=== PATIENT | male | born 1955 | race Caucasian/White ===

== ENCOUNTER 2023-11-19 09:03 | Outpatient (CLI) | payer MEDICARE, OTHER | END 2023-11-19 09:04 | disposition home or self-care (01) | LOC: CSHWCC 09:03 | PROVIDERS: ATTEND Nurse Practitioner Family | DX: T81.31XD Disruption of external operation (surgical) wound, not elsewhere classified, subsequent encounter (principal); E11.622 Type 2 diabetes mellitus with other skin ulcer; L98.499 Non-pressure chronic ulcer of skin of other sites with unspecified severity | CPT/HCPCS: 11042; 97607; G0463; 99213 ==

== ENCOUNTER 2023-11-26 09:54 | Outpatient (CLI) | payer MEDICARE, OTHER | END 2023-11-26 09:55 | disposition home or self-care (01) | LOC: CSHWCC 09:54 | PROVIDERS: ATTEND Nurse Practitioner Family | DX: T81.31XD Disruption of external operation (surgical) wound, not elsewhere classified, subsequent encounter (principal); E11.622 Type 2 diabetes mellitus with other skin ulcer; L98.499 Non-pressure chronic ulcer of skin of other sites with unspecified severity | CPT/HCPCS: 11042 ==

== ENCOUNTER 2023-12-14 13:26 | Outpatient (CLI) | payer MEDICARE, OTHER | END 2023-12-14 13:27 | disposition home or self-care (01) | LOC: CSHWCC 13:26 | PROVIDERS: ATTEND Nurse Practitioner Family | DX: E11.622 Type 2 diabetes mellitus with other skin ulcer (principal); T81.31XD Disruption of external operation (surgical) wound, not elsewhere classified, subsequent encounter; L98.499 Non-pressure chronic ulcer of skin of other sites with unspecified severity | CPT/HCPCS: 11042 ==

== ENCOUNTER 2024-01-25 09:15 | Outpatient (CLI) | payer MEDICARE, OTHER | END 2024-01-25 09:16 | disposition home or self-care (01) | LOC: CSHWCC 09:15 | PROVIDERS: ATTEND Family Medicine | DX: T81.31XD Disruption of external operation (surgical) wound, not elsewhere classified, subsequent encounter (principal); E11.622 Type 2 diabetes mellitus with other skin ulcer; L98.499 Non-pressure chronic ulcer of skin of other sites with unspecified severity | CPT/HCPCS: 99213; G0463 ==

== ENCOUNTER 2024-01-29 07:49 | Outpatient (CLI) | payer MEDICARE, OTHER ==
[2024-01-29 09:05] LABS: Anion Gap 17 mmol/L (10-20); BUN (Urea Nitrogen) 25 mg/dL (8.4-25.7); Calc. Creatinine Clearance 0 mL/min (70-130); Calcium 9.1 mg/dL (7.8-10.44); Carbon Dioxide 22 mmol/L (23-31); Chloride 107 mmol/L (98-107); Estimated GFR 46; Glucose 102 mg/dL (80-115); Potassium 4.7 mmol/L (3.5-5.1); Sodium 141 mmol/L (136-145)
== END 2024-01-29 07:50 | disposition home or self-care (01) ==
LOC: CSHLAB 07:49
PROVIDERS: ATTEND Surgery
DX: Z01.818 Encounter for other preprocedural examination (principal); S31.109A Unspecified open wound of abdominal wall, unspecified quadrant without penetration into peritoneal cavity, initial encounter
CPT/HCPCS: 80048; 93005; 93010

== ENCOUNTER → 2024-02-29 | Outpatient (CLI) | payer MEDICARE, OTHER | LOC: CSHWCC 13:00 | PROVIDERS: ATTEND Nurse Practitioner Family | DX: T81.31XD Disruption of external operation (surgical) wound, not elsewhere classified, subsequent encounter (principal); E11.622 Type 2 diabetes mellitus with other skin ulcer | CPT/HCPCS: 11042; 97605 ==

== ENCOUNTER 2024-03-07 09:53 | Outpatient (CLI) | payer MEDICARE, OTHER | END 2024-03-07 09:54 | disposition home or self-care (01) | LOC: CSHWCC 09:53 | PROVIDERS: ATTEND Nurse Practitioner Family | DX: T81.31XD Disruption of external operation (surgical) wound, not elsewhere classified, subsequent encounter (principal); E11.622 Type 2 diabetes mellitus with other skin ulcer; L98.499 Non-pressure chronic ulcer of skin of other sites with unspecified severity | CPT/HCPCS: 11042; 87070; 87077; 87186; 87205 ==

== ENCOUNTER 2024-03-14 09:12 | Outpatient (CLI) | payer MEDICARE, OTHER | END 2024-03-14 09:13 | disposition home or self-care (01) | LOC: CSHWCC 09:12 | PROVIDERS: ATTEND Preventive Medicine Undersea and Hyperbaric Medicine | DX: T81.31XD Disruption of external operation (surgical) wound, not elsewhere classified, subsequent encounter (principal); E11.622 Type 2 diabetes mellitus with other skin ulcer; L98.499 Non-pressure chronic ulcer of skin of other sites with unspecified severity | CPT/HCPCS: 97605 ==

== ENCOUNTER 2024-03-21 10:45 | Outpatient (CLI) | payer MEDICARE, OTHER | END 2024-03-21 10:46 | disposition home or self-care (01) | LOC: CSHWCC 10:45 | PROVIDERS: ATTEND Nurse Practitioner Family | DX: E11.622 Type 2 diabetes mellitus with other skin ulcer (principal); T81.31XD Disruption of external operation (surgical) wound, not elsewhere classified, subsequent encounter | CPT/HCPCS: 87070; 87077; 87186; 87205 ==

== ENCOUNTER 2024-03-28 09:45 | Outpatient (CLI) | payer MEDICARE, OTHER | END 2024-03-28 09:46 | disposition home or self-care (01) | LOC: CSHWCC 09:45 | PROVIDERS: ATTEND Nurse Practitioner Family | DX: T81.31XD Disruption of external operation (surgical) wound, not elsewhere classified, subsequent encounter (principal); E11.622 Type 2 diabetes mellitus with other skin ulcer; L98.499 Non-pressure chronic ulcer of skin of other sites with unspecified severity ==

== ENCOUNTER 2024-04-04 08:50 | Outpatient (CLI) | payer MEDICARE, OTHER | END 2024-04-04 08:51 | disposition home or self-care (01) | LOC: CSHWCC 08:50 | PROVIDERS: ATTEND Nurse Practitioner Family | DX: T81.31XD Disruption of external operation (surgical) wound, not elsewhere classified, subsequent encounter (principal); E11.622 Type 2 diabetes mellitus with other skin ulcer; L98.499 Non-pressure chronic ulcer of skin of other sites with unspecified severity | CPT/HCPCS: 11042 ==

== ENCOUNTER 2024-04-11 10:59 | Outpatient (CLI) | payer MEDICARE, OTHER | END 2024-04-11 11:00 | disposition home or self-care (01) | LOC: CSHWCC 10:59 | PROVIDERS: ATTEND Nurse Practitioner Family | DX: E11.622 Type 2 diabetes mellitus with other skin ulcer (principal); T81.31XD Disruption of external operation (surgical) wound, not elsewhere classified, subsequent encounter | CPT/HCPCS: 97597 ==

== ENCOUNTER 2024-04-18 08:51 | Outpatient (CLI) | payer MEDICARE, OTHER | END 2024-04-18 08:52 | disposition home or self-care (01) | LOC: CSHWCC 08:51 | PROVIDERS: ATTEND Nurse Practitioner Family | DX: T81.31XD Disruption of external operation (surgical) wound, not elsewhere classified, subsequent encounter (principal); E11.622 Type 2 diabetes mellitus with other skin ulcer; L98.499 Non-pressure chronic ulcer of skin of other sites with unspecified severity | CPT/HCPCS: 11042 ==

== ENCOUNTER 2024-06-13 08:33 | Outpatient (CLI) | payer MEDICARE, OTHER | END 2024-06-13 08:34 | disposition home or self-care (01) | LOC: CSHWCC 08:33 | PROVIDERS: ATTEND Nurse Practitioner Family | DX: T81.31XD Disruption of external operation (surgical) wound, not elsewhere classified, subsequent encounter (principal); E11.622 Type 2 diabetes mellitus with other skin ulcer; L98.499 Non-pressure chronic ulcer of skin of other sites with unspecified severity | CPT/HCPCS: 11042; 87070; 87205 ==

== ENCOUNTER 2024-06-20 08:40 | Outpatient (CLI) | payer MEDICARE, OTHER | END 2024-06-20 08:41 | disposition home or self-care (01) | LOC: CSHWCC 08:40 | PROVIDERS: ATTEND Nurse Practitioner Family | DX: T81.31XD Disruption of external operation (surgical) wound, not elsewhere classified, subsequent encounter (principal); E11.622 Type 2 diabetes mellitus with other skin ulcer; L98.499 Non-pressure chronic ulcer of skin of other sites with unspecified severity | CPT/HCPCS: 11042 ==

== ENCOUNTER 2024-06-27 10:55 | Outpatient (CLI) | payer MEDICARE, OTHER | END 2024-06-27 10:56 | disposition home or self-care (01) | LOC: CSHWCC 10:55 | PROVIDERS: ATTEND Nurse Practitioner Family | DX: T81.31XD Disruption of external operation (surgical) wound, not elsewhere classified, subsequent encounter (principal); E11.622 Type 2 diabetes mellitus with other skin ulcer; L98.499 Non-pressure chronic ulcer of skin of other sites with unspecified severity | CPT/HCPCS: 15271; Q4133 ==

== ENCOUNTER 2024-07-04 10:23 | Outpatient (CLI) | payer MEDICARE, OTHER | END 2024-07-04 10:24 | disposition home or self-care (01) | LOC: CSHWCC 10:23 | PROVIDERS: ATTEND Nurse Practitioner Family | DX: T81.31XD Disruption of external operation (surgical) wound, not elsewhere classified, subsequent encounter (principal); E11.622 Type 2 diabetes mellitus with other skin ulcer; L98.499 Non-pressure chronic ulcer of skin of other sites with unspecified severity | CPT/HCPCS: 15271; Q4133 ==

== ENCOUNTER 2024-07-18 10:21 | Outpatient (CLI) | payer MEDICARE, OTHER | END 2024-07-18 10:22 | disposition home or self-care (01) | LOC: CSHWCC 10:21 | PROVIDERS: ATTEND Nurse Practitioner Family | DX: T81.31XD Disruption of external operation (surgical) wound, not elsewhere classified, subsequent encounter (principal); E11.622 Type 2 diabetes mellitus with other skin ulcer; L98.499 Non-pressure chronic ulcer of skin of other sites with unspecified severity | CPT/HCPCS: 11042 ==

== ENCOUNTER 2024-07-25 09:46 | Outpatient (CLI) | payer MEDICARE, OTHER | END 2024-07-25 09:47 | disposition home or self-care (01) | LOC: CSHWCC 09:46 | PROVIDERS: ATTEND Nurse Practitioner Family | DX: T81.31XD Disruption of external operation (surgical) wound, not elsewhere classified, subsequent encounter (principal); E11.622 Type 2 diabetes mellitus with other skin ulcer; L98.499 Non-pressure chronic ulcer of skin of other sites with unspecified severity | CPT/HCPCS: 15271; Q4133 ==

== ENCOUNTER 2024-08-01 08:45 | Outpatient (CLI) | payer MEDICARE, OTHER | END 2024-08-01 08:46 | disposition home or self-care (01) | LOC: CSHWCC 08:45 | PROVIDERS: ATTEND Nurse Practitioner Family | DX: T81.31XD Disruption of external operation (surgical) wound, not elsewhere classified, subsequent encounter (principal); E11.622 Type 2 diabetes mellitus with other skin ulcer; L98.499 Non-pressure chronic ulcer of skin of other sites with unspecified severity | CPT/HCPCS: 97597 ==

== ENCOUNTER 2024-08-08 08:52 | Outpatient (CLI) | payer MEDICARE, OTHER | END 2024-08-08 08:53 | disposition home or self-care (01) | LOC: CSHWCC 08:52 | PROVIDERS: ATTEND Nurse Practitioner Family | DX: T81.31XD Disruption of external operation (surgical) wound, not elsewhere classified, subsequent encounter (principal); E11.622 Type 2 diabetes mellitus with other skin ulcer; L98.499 Non-pressure chronic ulcer of skin of other sites with unspecified severity | CPT/HCPCS: 99212; G0463 ==

== ENCOUNTER 2024-08-22 12:33 | Outpatient (CLI) | payer MEDICARE, OTHER | END 2024-08-22 12:34 | disposition home or self-care (01) | LOC: CSHWCC 12:33 | PROVIDERS: ATTEND Nurse Practitioner Family | DX: E11.622 Type 2 diabetes mellitus with other skin ulcer (principal); L98.499 Non-pressure chronic ulcer of skin of other sites with unspecified severity; Z87.2 Personal history of diseases of the skin and subcutaneous tissue | CPT/HCPCS: 99212; G0463 ==